=== PATIENT | female | born 1970 | race Caucasian/White ===

== ENCOUNTER 2020-03-15 07:39 | Inpatient (IN) | payer BC ==
[2020-03-30 10:06] VITALS: BMI 41.0
--- OUTSIDE RECORDS SUMMARY | 2020-04-05 09:00 | XMS ---
:1970 Author Organization [facility] Care Team Providers Name Role Phone BAILEY ESCOBEDO MD Unavailable Unavailable BAILEY ESCOBEDO MD Unavailable Unavailable BAILEY ESCOBEDO MD Unavailable Unavailable BAILEY ESCOBEDO MD Unavailable Unavailable BAILEY ESCOBEDO MD Unavailable Unavailable BAILEY ESCOBEDO MD Unavailable Unavailable BAILEY ESCOBEDO MD Unavailable Unavailable BAILEY ESCOBEDO MD Unavailable Unavailable BAILEY ESCOBEDO MD Unavailable Unavailable BAILEY ESCOBEDO MD Unavailable Unavailable BAILEY ESCOBEDO MD Unavailable Unavailable BAILEY ESCOBEDO MD Unavailable Unavailable BAILEY ESCOBEDO MD Unavailable Unavailable BAILEY ESCOBEDO MD Unavailable Unavailable BAILEY ESCOBEDO MD Unavailable Unavailable BAILEY ESCOBEDO MD Unavailable Unavailable BAILEY ESCOBEDO MD Unavailable Unavailable BAILEY ESCOBEDO MD Unavailable Unavailable BAILEY ESCOBEDO MD Unavailable Unavailable BAILEY ESCOBEDO MD Unavailable Unavailable BAILEY ESCOBEDO MD Unavailable Unavailable BAILEY ESCOBEDO MD Unavailable Unavailable BAILEY ESCOBEDO MD Unavailable Unavailable NAMITA KNOWLES, MIKE Haider MD Unavailable Unavailable Mangiafico Unavailable Unavailable Artuso Unavailable Unavailable Tamiko, M Unavailable Unavailable Brodoff Unavailable Unavailable Baccay Unavailable Unavailable Tra, F Unavailable Unavailable Karla J Unavailable Unavailable Karla J Unavailable Unavailable Karla J Unavailable Unavailable Karla J Unavailable Unavailable Karla J Unavailable Unavailable Karla J Unavailable Unavailable Karla J Unavailable Unavailable Karla J Unavailable Unavailable Karla J Unavailable Unavailable Karla J Unavailable Unavailable Karla J Unavailable Unavailable Karla J Unavailable Unavailable Karla J Unavailable Unavailable Karla J Unavailable Unavailable Karla J Unavailable Unavailable Karla J Unavailable Unavailable Karla, J MD Unavailable Unavailable Selam Acosta MD Unavailable Unavailable Selam Acosta MD Unavailable Unavailable Selam Acosta MD Unavailable Unavailable Selam Acosta MD Unavailable Unavailable Brown, D Unavailable Unavailable Re-disclosure Warning The records that you are about to access may contain information from federally- assisted alcohol or drug abuse programs. If such information is present, then the following federally mandated warning applies: This information has been disclosed to you from records protected by federal confidentiality rules (42 CFR part 2). The federal rules prohibit you from making any further disclosure of this information unless further disclosure is expressly permitted by the written consent of the person to whom it pertains or as otherwise permitted by 42 CFR part 2. A general authorization for the release of medical or other information is NOT sufficient for this purpose. The Federal rules restrict any use of the information to criminally investigate or prosecute any alcohol or drug abuse patient.The records that you are about to access may contain highly sensitive health information, the redisclosure of which is protected by Article 27-F of the [facility] Public Health law. If you continue you may haveaccess to information: Regarding HIV / AIDS; Provided by facilities licensed or operated by the [facility] Office of Mental Health; or Provided by the [facility] Office for People With Developmental Disabilities. If such information is present, then the following [facility] mandated warning applies: This information has been disclosed to you from confidential records which are protected by state law. State law prohibits you from making any further disclosure of this information without the specific written consent of the person to whom it pertains, or as otherwise permitted by law. Any unauthorized further disclosure in violation of state law may result in a fine or snf sentence or both. A general authorization for the release of medical or other information is NOT sufficient authorization for further disclosure. Allergies and Adverse Reactions Type Description Substance Reaction Status Data Source(s ) 3 NO KNOWN ALLERGIES Clindamycin 150 MG Oral NEXTGEN ([facility] Tablet [Clintabs] [facility]) Encounters Encounter Providers Location Date Indications Data Source(s ) Outpatient Attender: Johanny 04/02/2020 NEXTGEN ( [facility] 10:42:00 AM [facility]) Outpatient Attender: Johanny 04/02/2020 NEXTGEN ( [facility] 10:29:00 AM [facility] ) Outpatient Attender: Arbie 04/01/2020 NEXTGEN ( [facility] 01:54:00 PM [facility] ) Outpatient Attender: 04/01/2020 NEXTGEN ( [facility] 01:13:00 PM [facility] ) Outpatient Attender: Arb03/30/2020 NEXTGEN ( [facility] BaccayReferrer: 02:30:00 PM [facility] - [facility] ) Outpatient Attender: Marti 03/29/2020 NEXTGEN ( [facility] SaidiReferrer: Marti 03:30:00 PM Med ical - [facility] ) Outpatient Attender: 03/22/2020 NEXTGEN ( [facility] BaccayReferrer: 04:15:00 PM [facility] - [facility] Arbie [facility] ) Outpatient Attender: 03/21/2020 NEXTGEN ( [facility] 12:00:00 AM [facility] ) Outpatient Attender: 03/13/2020 NEXTGEN ( [facility] 12:00:00 AM [facility] ) Outpatient Attender: Marti 03/12/2020 NEXTGEN ( [facility] SaidiReferrer: Arbie 10:15:00 AM Med ical - [facility] ) Outpatient Attender: 03/11/2020 NEXTGEN ( [facility] 12:00:00 AM [facility] ) Outpatient Attender: 03/09/2020 NEXTGEN ( [facility] 10:57:00 AM [facility] ) Outpatient Attender: 03/08/2020 NEXTGEN ( [facility] BaccayReferrer: 02:00:00 PM [facility] - [facility] [place] Arbie [facility] ) Outpatient Attender: 03/05/2020 NEXTGEN ( [facility] BaccayReferrer: 04:00:00 PM Medical - [facility] Mike Arceus [facility]) Outpatient Attender: Tito 03/03/2020 NEXTGEN ([facility] Mangia[facility]ico 12:18:00 PM [facility]) Outpatient Attender: Johanny 02/23/2020 NEXTGEN ( [facility] 03:41:00 PM [facility] - [facility]) Outpatient Attender: Johanny 01/08/2020 NEXTGEN ( [facility] 03:34:00 PM [facility]) Outpatient Attender: Johanny 01/05/2020 NEXTGEN ( [facility] 11:40:00 AM [facility]) Outpatient Attender: Johanny 12/26/2019 NEXTGEN ( [facility] BaccayReferrer: 11:15:00 AM Medical - [facility] Arbie Baccay EDT Medical Grou p PC) Outpatient Attender: MIKE 12/12/2019 Z71.3 [facility] ARTUSO MDReferrer: 12:15:00 PM Hospi henrique of [facility] MIKE BREAUX MD EDT - 12/12/2019 12:45:00 PM EDT Z71.3 Patient discharged. Outpatient Attender: Johanny 11/18/2019 05:06:00 NEXTGEN ([facility] PM EDT [facility]) Outpatient Attender: Johanny 08/19/2019 01:00:00 NEXTGEN ([facility] PM EST [facility] - [facility]) Outpatient Attender: Luis eFrnando 06/26/2019 09:17:00 NEXTGEN ([facility] Elvis AM EST [facility] - [facility]) Outpatient Attender: Parth 06/02/2019 12:00:00 NEXTGEN ([facility] Nanff AM EST [facility] - [facility]) P Attender: MIKE 05/28/2019 03:30:00 OBESITY, COU [facility] ARTUSO MDReferrer: PM EST NSEL Hospit al of [facility] MIKE BREAUX MD 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,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 Outpatient Attender: Benson 05/21/2019 ROJASGEN Karla MDReferrer: 12:00:00 AM EST (Flory Acosta MD [facility]) Outpatient Attender: Johanny 05/07/2019 NEXTGEN Baccay 11:35:00 AM EST ([facility]) Outpatient Attender: Johanny 05/02/2019 NEXTGEN Baccay 09:58:00 AM EST ([facility]) Outpatient Attender: [facility] 04/25/2019 MEDENT (Deloris ESCOBEDO MD Internal 03:00:00 PM EDT [facility]) Outpatient Attender: MIKE 04/21/2019 OBESITY [facility] esperanza BREAUX MDReferrer: 03:30:00 PM EDT - [facility] MIKE BREAUX MD 04/21/2019 Hospit al of [facility] 04:40:00 PM EDT OBESITY Patient discharged. Outpatient Attender: Johanny Hannon 04/19/2019 12:00:00 AM NEXTGEN ([facility] EDT Medical - [facility] Medical [facility]) Outpatient Attender: Luis Fernando 04/17/2019 03:30:00 PM NEXTGEN ([facility] BrownReferrer: Arbjorge EDT Medi latanya [facility]) Outpatient Attender: Johanny Hannon 04/17/2019 12:00:00 AM NEXTGEN ([facility] EDT Medical - [facility] Medical [facility]) Outpatient Attender: Johanny 04/07/2019 10:00:00 AM NEXTGEN ([facility] BaccayReferrer: Johanny EDT Med ical [facility]) Outpatient Attender: Valeria 02/21/2019 08:10:00 AM NEXTGEN ([facility] KayeReferrer: Valeria EDT Medic al - [facility]) Medications Medication Brand Start Product Dose Route Administrative Pharmacy St atus Indications Reaction Description Data Name Date Form Instructions Instructions Source(s) Levothyroxi TIROSI take 1 capsule RP NEXTGEN ne Sodium NT 2019 by oral route ( [facility] 0.2 MG Oral 12:00: every day M edical - Capsule 00 AM [facility] [place] [Tirosint] EDT Medical 200 mcg 200 Group PC ) mcg This may be an active medication. No end date is available. Levothyroxine SYNTHROID 11/18/2019 TAKE 1 RP NEXTGEN Sodium 0.175 MG 12:00:00 AM EDT TABLET BY ([facility] Oral Tablet MOUTH EVERY M edical - Mt [Synthroid] 175 DAY [facility] mcg 175 mcg Group PC ) This may be an active medication. No end date is available. Insurance Providers Payer name Policy type / Policy ID Covered Covered Policy Plan Coverage type democrat ID democrat's Evans Inform ation relationship to evans [facility] [id number] S [id number] [facility] [id number] [employer] [facility]aur[facility] [id number] SO [id number] [employer] [id number] SO [id number] COMMERCIAL [facility] [id number] SP [id number] [facility] Group [id number] 3 [id number] [employer] [facility] [employer] [id number] SO [id number] [facility] [employer] [id number] Self [id number] ([facility]) Maintenance Organization (HMO) [employer] [id number] COMMERCIAL Problems, Conditions, and Diagnoses Code Display Name Description Problem Type Effective Data Dates Source(s) 452049305 Full respiratory Full respiratory Problem 04/25/2019 [place] DENT system examination system examination 12:00:00 AM ([facility]) [id number] Morbid obesity Morbid obesity Problem 04/25/2019 MEDENT 12:00:00 AM ([facility]) [id number] Obstructive sleep Obstructive sleep Problem 04/25/2019 MEDENT apnea syndrome apnea syndrome 12:00:00 AM ([facility]) E03.9 Hypothyroidism, Hypothyroidism, Diagnosis 03/30/2020 NEXT GEN unspecified unspecified type 02:30:00 PM (Carem [facility]unt [facility] - [facility]) Z68.41 Body mass index Body mass index Diagnosis 03/30/2020 NEXT GEN (BMI) 40.0-44.9, [BMI]40.0-44.9, 02:30:00 PM ([facility] adult adult T [facility]) E66.01 Morbid (severe) Morbid obesity Diagnosis 03/30/2020 NEXTG EN obesity due to with BMI of 02:30:00 PM ([facility] excess calories 40.0-44.9, adult EDT Med [facility] PC) R74.8 Abnormal levels of Abnormal AST and Diagnosis 03/30/2020 NEXTGEN other serum ALT 02:30:00 PM ([facility] enzymes [facility]) K76.0 Fatty (change of) Fatty liver Diagnosis 03/29/2020 NEXTGE N liver, not 03:30:00 PM ([facility] elsewhere T [facility] classified [facility]) Z01.84 Encounter for Lack of immunity Diagnosis 03/22/2020 NEXTG EN antibody response to hepatitis B 04:15:00 PM ([facility] examination virus demonstrated EDT Medic [facility] by serologic test [facility] Group PC) R74.0 Nonspecific Abnormal Diagnosis 03/12/2020 NEXTGEN elevation of transaminases 10:15:00 AM ([facility] levels of [facility] transaminase and [facility] dical lactic acid Group ) dehydrogenase [LDH] R79.1 Abnormal Prothrombin time Diagnosis 03/09/2020 NEXTGEN coagulation increased 10:57:00 AM ([facility] profile [facility]) R82.90 Unspecified Abnormal Diagnosis 03/08/2020 NEXTGEN abnormal findings urinalysis 02:00:00 PM (Carem ount in urine [facility] PC) Z01.818 Encounter for Pre-operative Diagnosis 03/05/2020 NEXTGEN other examination 04:00:00 PM ([facility] preprocedural EDT Medical [facility] t examination [facility]) Z71.3 Dietary counseling DIETARY COUNSELING Diagnosis 0 [place] and surveillance AND SURVEILLANCE 06:34:00 AM [facility] E66.01 Morbid (severe) MORBID (SEVERE) Diagnosis 12/12/2019 [facility] obesity due to OBESITY DUE TO 06:34:00 AM Regio nal excess calories EXCESS CALORIES EDT Hosp ital [facility] E03.9 Hypothyroidism, HYPOTHYROIDISM, Diagnosis 04/21/2019 [facility] unspecified UNSPECIFIED 03:34:00 [facility] Z68.39 Body mass index BODY MASS INDEX Diagnosis 04/21/2019 [facility] (BMI) 39.0-39.9, (BMI) 39.0-39.9, 03:34:00 PM [facility] adult [facility] EDT [facility] M79.661 Pain in right Pain of right knee Diagnosis 04/17/2019 NEX TGEN lower leg and lower leg 03:30:00 PM ([facility]) R13.10 Dysphagia, Dysphagia, Diagnosis 04/07/2019 NEXTGEN unspecified unspecified type 10:00:00 AM ([facility] ount [facility]) G89.29 Other chronic pain Other chronic pain Diagnosis 9 NEXTGEN 10:00:00 AM ([facility] Group PC) M25.561 Pain in right knee Chronic pain of Diagnosis 04/07/2019 N EXTGEN right knee 10:00:00 AM ([facility]) R06.83 Snoring Snoring Diagnosis 04/07/2019 NEXTGEN 10:00:00 AM ([facility]) Z68.38 Body mass index Body mass index Diagnosis 04/07/2019 NEXT GEN (BMI) 38.0-38.9, (bmi) 38.0-38.9, 10:00:00 AM ( [facility] adult adult T [facility] PC) Z00.00 Encounter for Annual physical Diagnosis 04/07/2019 NEXTGE N general adult exam 10:00:00 AM ([facility] examination [facility] without abnormal Group PC ) findings Surgeries/Procedures Procedure Description Date Indications Data Source(s) OFFICE/OUTPATIENT OFFICE/OUTPATIENT 03/30/2020 NEXTG EN ([facility] VISIT EST VISIT EST 12:00:00 AM [facility] sco EDT Medical Group P C) HEP A/HEP B VACC HEP A/HEP B VACC 03/22/2020 NEXTGEN ([facility] ADULT IM ADULT IM 12:00:00 [facility] IMMUNIZATION ADMIN IMMUNIZATION ADMIN 03/22/2020 NEX TGEN ([facility] 12:00:00 [facility]) OFFICE CONSULTATION OFFICE CONSULTATION 03/12/2020 N EXTGEN ([facility] 12:00:00 AM Medical - [facility] sco EDT [facility] Group P C) MISSED APPOINTMENT MISSED APPOINTMENT 05/21/2019 NEX TGEN ([facility] 12:00:00 AM [facility] EST [facility]) SPMTRY W/VC 04/25/2019 MEDENT ([facility] +-MXML 12:00:00 AM Medica l Group of [facility] EDT the [facility]) OFFICE CONSULTATION OFFICE CONSULTATION 04/17/2019 N EXTGEN ([facility] 12:00:00 AM [facility]) OFFICE/OUTPATIENT OFFICE/OUTPATIENT 04/07/2019 NEXTG EN ([facility] VISIT EST VISIT EST 12:00:00 AM [facility]) PREV VISIT EST AGE PREV VISIT EST AGE 1004/07/2019 NEX TGEN ([facility] 40-64 40-64 12:00:00 AM [facility]) Results ID Date Data Source [id number] 04/01/2020 08:16:00 AM EDT [facility] Name Value Range Interpretation Description Data Sup porting Code Source(s) Document(s ) SARS [facility] coronavirus 2 RNA This lab was ordered by NATACHA amezquita [facility] and reported by [facility]. ID Date Data Source [id number] 10/08/2019 12:00:00 AM EDT [facility] Name Value Range Interpretation Code Description Data Haleigh rce(s) Supporting Document(s ) 2019-nCoV [facility] RNA XXX CAIN+probe- Imp This lab was ordered by [facility] DAIGLE and reported by [employer] Procedure Vital Signs ID Date Data Source UNK Name Value Range Interpretation Code Description Data Source(s) Body mass index 40.1 kg/m2 40.1 kg/m2 MEDENT (P remier (BMI) [Ratio] Medical Te up of the [facility]) Oxygen saturation 98 % 98 % MEDENT ([facility] in Arterial blood Medical Group of by Pulse oximetry [facility]) at rest. room air Heart rate 69 /min 69 /min MEDENT ([facility]) Respiratory rate 12 /min 12 /min MEDENT ( [facility]) Diastolic blood pressure 76 mm[Hg] 76 mm[Hg] [facility]ENT [facility]) right arm, sitting Systolic blood pressure 120 mm[Hg] 120 mm[Hg] M EDENT ([facility]) right arm, sitting Body height 61 [in_i] 61 [in_i] MEDENT ([facility]) 5'1" Body weight 212.00 [lb_av] 212.00 [lb_av] MEDEN T ([facility]) fully clothed, with shoes
[2020-04-05] MEDS ORDERED: BUPIVACAINE HCL/PF 0.25% (2.5MG/ML) 10 ML VIAL ONE (09:22)
[2020-04-05] MEDS ORDERED: BUPIVACAINE HCL/PF 0.5% (5 MG/ML) 30 ML VIAL IJ ONE (10:08)
[2020-04-05] MEDS ORDERED: DEXAMETHASONE SOD PHOSPHATE 4 MG/1 ML VIAL ONE ×2 (10:08→10:10)
[2020-04-05] MEDS ORDERED: MIDAZOLAM HCL 2 MG/2 ML SINGLE DOSE VIAL ONE (10:08)
[2020-04-05] MEDS ORDERED: PROPOFOL 20 ML ONE (10:10)
[2020-04-05] MEDS ORDERED: ONDANSETRON 4 MG/2 ML VIAL ONE ×2 (10:10→11:52)
[2020-04-05] MEDS ORDERED: KETOROLAC TROMETHAMINE 30 MG/1 ML VIAL ONE (10:10)
[2020-04-05] MEDS ORDERED: ROCURONIUM BROMIDE 50 MG/5 ML SYRINGE ONE (10:11)
[2020-04-05] MEDS ORDERED: ePHEDrine SULFATE 50 MG/1 ML AMPULE ONE (10:12)
[2020-04-05] MEDS ORDERED: ceFAZolin SODIUM 1 GM VIAL ONE ×2 (11:00→11:01)
[2020-04-05] MEDS ORDERED: ONDANSETRON 4 MG/2 ML VIAL IVPUSH PRN (11:08)
[2020-04-05] MEDS ORDERED: HYDROmorphone HCL CARPU-JECT 1 MG/1 ML DISP.SYRIN IVPUSH PRN (11:08)
[2020-04-05] MEDS ORDERED: LACTATED RINGERS SOLUTION 1,000 ML IV SCH (11:15)
[2020-04-05] MEDS ORDERED: NEOSTIGMINE METHYLSULFATE 0.5 MG/ML - 10 ML MDV ONE (11:53)
[2020-04-05] MEDS ORDERED: FAMOTIDINE 20 MG/50 ML IVPB 20 MG/50 ML MG IVPB ONE (12:40)
[2020-04-05] MEDS ORDERED: HYDROmorphone HCL/PF 1 MG/ML VIAL ONE (12:46)
[2020-04-05] MEDS ORDERED: BUPIVACAINE HCL/PF 0.25% (2.5MG/ML) 10 ML VIAL IJ ONE (12:50)
[2020-04-05] MEDS ORDERED: METOCLOPRAMIDE HCL INJECTION 10 MG/2 ML VIAL ONE (13:11)
[2020-04-05] MEDS ORDERED: HYDROmorphone HCL 0.5 MG/0.5 ML SYRINGE IVPB PRN (13:14)
[2020-04-05] MEDS: METOCLOPRAMIDE HCL INJECTION 10 MG/2 ML VIAL IVPUSH SCH ×2 (13:15→20:04)
[2020-04-05] MEDS ORDERED: FAMOTIDINE 20 MG PREMIXED IVPB IVPB ONE (13:21)
--- NOTE | 2020-04-05 13:23 | OP ---
Operative Note - Note: Operative Date: 04/05/20 Pre-Operative Diagnosis: Morbid Obesity. Sleep Apnea. Elevated LFT Operation: Laparoscopic Vertical Sleeve Gastrectomy. Wedge Biopsy of left lobe of liver. Oversewing of gastric staple line. Repair of hiatal hernia. D iagnostic Laparoscopy Findings: Greater curve sleeve gastrectomy performed with #[address] Gastric staple line oversewn for hemostsis Wedge biopsy performed on enlarged left lobe of liver Anterior hiatal hernia repaired with simple sutures Post-Operative Diagnosis: Same as Pre-op (Hepatomegaly; Hiatal hernia) Surgeon: Mike Ziegler [employer] Ventilator: Ronnie Condon Anesthesia: General Specimens Removed: Greater curve of stomach. Wedge biopsy of left lobe of liver Estimated Blood Loss (mls): 100 Operative Report Dictated: Yes
[2020-04-05 14:00] LABS: HEMATOCRIT 40.8 % (32.4-45.2); HEMOGLOBIN 13.6 GM/dl (10.7-15.3); MCHC 33.2 g/dl (32.0-36.0); MEAN CELL VOLUME 93.2 fl (80-96); MEAN PLT VOLUME 9.4 fl (7.5-11.1); PLATELET COUNT 308 K/MM3 (134-434); RBC 4.38 M/mm3 (3.60-5.2); RDW 12.9 % (11.6-15.6); WHITE BLOOD COUNT 10.1 K/mm3 (4.0-10.8)
[2020-04-05 14:05] LABS: ACTIVATED PTT 26.5 SECONDS (25.2-36.5)
[2020-04-05 14:06] LABS: ALBUMIN 3.6 g/dl (3.4-5.0); BILIRUBIN,TOTAL 0.7 mg/dl (0.2-1); CALCIUM 8.3 mg/dl (8.5-10); CREATININE 0.6 mg/dl (0.55-1.3); POTASSIUM 4.1 mmol/L (3.5-5.1); TOT PROT 7.1 g/dl (6.4-8.2)
[2020-04-05] MEDS: SODIUM CHLORIDE 1,000 ML IV SCH (14:07)
[2020-04-05 14:09] LABS: INR 1.29 (0.82-1.09); PROTHROMBIN TIME (PATIENT) 14.4 SEC (10.2-13.0)
--- NOTE | 2020-04-05 14:26 | OP ---
DATE OF OPERATION: 04/05/2020 PREOPERATIVE DIAGNOSES: 1. Morbid obesity. 2. Sleep apnea. 3. Elevated liver function tests. POSTOPERATIVE DIAGNOSES: 1. Morbid obesity. 2. Sleep apnea. 3. Elevated liver function tests. 4. Hepatomegaly 5. Hiatal hernia. PROCEDURE PERFORMED: 1. Laparoscopic vertical sleeve gastrectomy. 2. Wedge biopsy of the left lobe of the liver. 3. Oversewing of gastric staple line. 4. Repair of a hiatal hernia. 5. Diagnostic laparoscopy. OPERATING SURGEON: Madyson Breaux MD ELECTRICIAN APPRENTICE: MAYRA Sanz ANESTHESIA: General. ESTIMATED BLOOD LOSS: 100 mL DISPOSITION: Patient transferred to recovery room in stable condition. OPERATIVE PROCEDURE: The patient was brought into the operating room, placed on the OR table in the supine position. All precautions were taken initially including padding for the back and the feet and Venodyne boots were placed on both lower extremities. At that point the abdomen was prepped and draped in the usual manner. A Veress needle was placed in the left upper quadrant and a pneumoperitoneum was established. Under direct vision with a laparoscopic camera a No. 5 bladeless trocar was placed in the left upper quadrant and through that trocar a laparoscopic camera was placed. Under direct vision a No. 15 bladeless trocar was placed in the midline in the supraumbilical position followed by a No. 5 bladeless trocar in the right upper quadrant and a No. 5 bladeless trocar below the left costal margin. A Solitario liver retractor was then placed in the epigastrium to retract the left lobe of the liver. The patient was then placed in a 20-degree reverse Trendelenburg position by Anesthesia. Immediately upon exploring the upper abdomen with the entire stomach there was noted to be a moderate to large size anterior hiatal hernia. The stomach was pulled down into the abdominal cavity and the repair of the anterior hiatal hernia was performed with simple sutures between the right and left crural muscles. With the right and left crural muscles exposed and visible, it took 3 simple sutures to bring the right and left crural muscles together and to keep the esophagogastric junction in the abdominal cavity. At this point attention was directed to the pylorus on the distal stomach. Six cm were measured proximally from that point and here the operating surgeon lifted the stomach toward the anterior abdominal wall and the assistant in nursing surgeon retracted the gastrocolic ligament inferiorly. The LigaSure device was used to dissect the gastrocolic ligament and then the short gastric vessels along the greater curve and this continued in a superior and vertical direction. This dissection continued vertically and superiorly until the final short gastric vessel between the proximal fundus and the superior pole of the spleen was divided. At this juncture Anesthesia advanced a No. 36 bougie. This was advanced into the antrum and along the distal stomach. With the bougie held along the lesser curvature a series of trudy was performed, the first 2 being black load trudy 6 cm in length along the bougie. This was followed by a series of purple trudy also 6 cm in length and also along the bougie until the final staple was applied on the left upper quadrant and the greater curve was now completely detached from the lesser curve. It should be noted that prior to firing each staple both the anterior and posterior solo were checked that they were equal and in the area of the esophagogastric junction approximately 1 to 1.5 cm of serosa remained on the anterior and posterior surfaces. At this juncture there was noted to be some slight oozing throughout the staple line and the Endo Stitch was used to run the staple line and provide hemostasis from the very proximal all the way to the distal portion on the antrum. At this juncture saline was placed around the staple line. Anesthesia inserted air into the bougie which showed the entire stomach distended. No obstruction and no leaks were noted. At this point attention was directed to the left lobe of the liver which looked enlarged and the patient was noted to have elevated LFTs. The LigaSure device was used to take a wedge, triangle-shaped wedge of liver off the edge of the left lobe of the liver going through first the capsule and then the parenchyma. The specimen was sent off the field as a specimen to Pathology and the parenchymal bleeding was then easily controlled with electrocautery. At this juncture the resected greater curvature was removed through the No. 15 trocar site and then the 15 trocar site was closed with Endo closure device to prevent internal hernia and to prevent bleeding. Under direct vision all trocars were removed and the pneumoperitoneum was released. All trocar sites received 0.25% Marcaine. The No. 15 trocar site was closed with 3-0 Vicryl in the subcutaneous tissue and all trocar sites were closed with 4-0 Biosyn in a subcuticular fashion. Dressings were applied. The patient awoke from anesthesia and transferred out of the operating room to the recovery room in stable condition. MADYSON BREAUX M.D. [id number]
[2020-04-05] MEDS: ONDANSETRON 4 MG/2 ML VIAL IVPUSH PRN (16:48)
[2020-04-05] MEDS: HYDROmorphone HCL/PF 1 MG/ML VIAL IVPB PRN (20:04)
[2020-04-05] MEDS: FAMOTIDINE 20 MG/50 ML IVPB 20 MG/50 ML MG IVPB SCH (21:27)
[2020-04-06] MEDS: HYDROmorphone HCL/PF 1 MG/ML VIAL IVPB PRN ×5 (00:01→23:05)
[2020-04-06] MEDS: METOCLOPRAMIDE HCL INJECTION 10 MG/2 ML VIAL IVPUSH SCH ×4 (00:20→21:08)
[2020-04-06] MEDS: ONDANSETRON 4 MG/2 ML VIAL IVPUSH PRN (02:44)
[2020-04-06 08:09] LABS: HEMATOCRIT 31.3 % (32.4-45.2); HEMOGLOBIN 10.5 GM/dl (10.7-15.3); MCHC 33.6 g/dl (32.0-36.0); MEAN CELL VOLUME 92.3 fl (80-96); MEAN PLT VOLUME 9.5 fl (7.5-11.1); PLATELET COUNT 329 K/MM3 (134-434); RBC 3.39 M/mm3 (3.60-5.2); RDW 12.5 % (11.6-15.6); WHITE BLOOD COUNT 13.7 K/mm3 (4.0-10.8)
[2020-04-06 08:46] LABS: BILIRUBIN,TOTAL 0.6 mg/dl (0.2-1); CALCIUM 7.6 mg/dl (8.5-10); CREATININE 0.6 mg/dl (0.55-1.3); POTASSIUM 3.9 mmol/L (3.5-5.1); TOT PROT 6.1 g/dl (6.4-8.2)
[2020-04-06] MEDS: FAMOTIDINE 20 MG/50 ML IVPB 20 MG/50 ML MG IVPB SCH ×2 (09:27→21:09)
--- NOTE | 2020-04-06 10:09 | EKG ---
Test Reason : Blood Pressure : / mmHG Vent. Rate : 067 BPM Atrial Rate : 067 BPM P-R Int : 162 ms QRS Dur : 090 ms QT Int : 410 ms P-R-T Axes : 043 024 -16 degrees QTc Int : 433 ms NORMAL SINUS RHYTHM NONSPECIFIC T WAVE ABNORMALITY ABNORMAL ECG WHEN COMPARED WITH ECG OF 05-APR-2020 18:28, NO SIGNIFICANT CHANGE WAS FOUND Confirmed by MD Damien, Parth ([id number]) on 04/06/2020 10:08:56 AM Referred By: Mike Ziegler Confirmed By:Parth Quezada MD
[2020-04-06] MEDS ORDERED: SUCCINYLCHOLINE CHLORIDE 200 MG/10 ML SYRINGE ONE (11:01)
[2020-04-06] MEDS ORDERED: PROPOFOL 20 ML ONE (11:01)
[2020-04-06] MEDS ORDERED: MIDAZOLAM HCL 2 MG/2 ML SINGLE DOSE VIAL ONE (11:02)
[2020-04-06] MEDS: SODIUM CHLORIDE 1,000 ML IV SCH (14:06)
--- NOTE | 2020-04-06 15:36 | CON.CARD ---
Consult Consult Specialty:: cardiology Referred by:: surgery Reason for Consultation:: abnormal EKG, ?Vtach - History of Present Illness Chief Complaint: postop gastric sleeve, abd pain History of Present Illness: 49F history of obesity, hypothyroidism, obesity s/p sleeve gastrectomy yesterday with ?vtach on tele monitoring. no complications during surgery, denies chest pain, palps, dizziness, dyspnea. on tele monitoring last night was concerning for VTach. at the time she had abdominal pain post op, otherwise no complaints. - Past Medical History ...LMP: 02/12/20 ...: No Endocrine: Yes: Hypothyroidism - Smoking History Smoking history: Never smoked Home Medications - Allergies Allergies/Adverse Reactions: Allergies Allergy/AdvReac Type Severity Reaction Status Date / Time No Known Allergies Allergy Verified 03/30/20 10:00 - Home Medications Home Medications: Ambulatory Orders Levothyroxine [Synthroid -] 200 mcg PO DAILY 03/30/20 Famotidine [Pepcid -] 20 mg PO BID #60 tablet 04/05/20 Oxycodone HCl/Acetaminophen [Percocet 5-325 mg Tablet] 1 tab PO Q6H PRN #20 tablet MDD 4 04/05/20 Family Medical History Family History: Unremarkable Review of Systems - Review of Systems Constitutional: reports: No Symptoms Eyes: reports: No Symptoms HENT: reports: No Symptoms Neck: reports: No Symptoms Cardiovascular: reports: No Symptoms Respiratory: reports: No Symptoms Gastrointestinal: reports: No Symptoms Genitourinary: reports: No Symptoms Musculoskeletal: reports: No Symptoms Integumentary: reports: No Symptoms Neurological: reports: No Symptoms Endocrine: reports: No Symptoms Hematology/Lymphatic: reports: No Symptoms Psychiatric: reports: No Symptoms Vital Signs: Vital Signs Temperature 98.4 F 04/06/20 14:00 Pulse Rate 78 04/06/20 14:00 Respiratory Rate 18 04/06/20 14:00 Blood Pressure 136/70 04/06/20 14:00 O2 Sat by Pulse Oximetry (%) 96 04/06/20 14:00 Constitutional: Yes: No Distress, Calm Eyes: Yes: Conjunctiva Clear, EOM Intact HENT: Yes: Atraumatic, Normocephalic Neck: Yes: Supple, Trachea Midline Respiratory: Yes: Regular, CTA Bilaterally Gastrointestinal: Yes: Soft, Tenderness Cardiovascular: Yes: Regular Rate and Rhythm JVD: No Heart Sounds: Yes: S1, S2 Musculoskeletal: No: Back Pain Extremities: No: Cold Edema: No Peripheral Pulses WNL: Yes Integumentary: No: Jaundice Neurological: Yes: Alert, Oriented Psychiatric: No: Agitated - Other Data Labs, Other Data: CBC, BMP 04/06/20 06:58 04/06/20 06:58 INR, PTT INR 1.29 (0.82-1.09) H 04/05/20 13:30 Troponin, BNP 04/05/20 04/06/20 19:30 03:00 Troponin I 0.03 < 0.02 Troponin, BNP 04/05/20 04/06/20 19:30 03:00 Troponin I 0.03 < 0.02 Assessment/Plan EKG: sinus, nl intervals, no ischemic changes echo 2018 nl LV/RV function, mild MR, mild TR tele: sinus, artifact 49F history of obesity, hypothyroidism, sleep apnea s/p sleeve gastrectomy surgery yesterday with ?vtach on tele monitoring abnormal EKG, ?Vtach - reviewed telemetry strips - likely sinus rhythm with significant artifact - EKG stable compared to prior - echo pending, if benign findings no further cardiac workup obesity, s/p sleeve gastrectomy - manage per surgery sleep apnea - follow up as outpatient hypothyroidism - cont levothyroxine
[2020-04-06 15:42] LABS: HEMATOCRIT 28.7 % (32.4-45.2); MCH 32.1 pg (25.7-33.7); MCHC 34.9 g/dl (32.0-36.0); MEAN CELL VOLUME 92.1 fl (80-96); MEAN PLT VOLUME 8.8 fl (7.5-11.1); PLATELET COUNT 292 K/MM3 (134-434); RBC 3.11 M/mm3 (3.60-5.2); RDW 12.8 % (11.6-15.6); WHITE BLOOD COUNT 11.7 K/mm3 (4.0-10.8)
[2020-04-06 16:01] LABS: ACTIVATED PTT 20.5 SECONDS (25.2-36.5)
[2020-04-06 16:03] LABS: ALBUMIN 3.1 g/dl (3.4-5.0); BILIRUBIN,TOTAL 0.7 mg/dl (0.2-1); CALCIUM 7.7 mg/dl (8.5-10); CREATININE 0.5 mg/dl (0.55-1.3)
[2020-04-06 16:05] LABS: INR 1.4 (0.82-1.09); PROTHROMBIN TIME (PATIENT) 15.6 SEC (10.2-13.0)
--- NOTE | 2020-04-06 16:18 | ECHO ---
Version: 1 Name: KHALIF WANG Exam: Adult Echocardiogram Study Date: 04/06/2020, 2:28 PM Age: 49 Years MMode/2D Measurements & Calculations IVSd: 1.00 cm LVIDs: 2.36 cm LVIDd: 4.3 cm LVPWd: 0.94 cm LVOT diam: 2.00 cm Ao root diam: 2.8 cm LA dimension: 2.7 cm Doppler Measurements & Calculations MV E max don: 121.2 cm/sec MV A max don: 82.3 cm/sec MV E/A: 1.47 Ao max P.9 mmHg Ao V2 max: 172.2 cm/sec PI end-d don: 93.4 cm/sec TR max don: 208.8 cm/sec TR max P.4 mmHg Left Ventricle The left ventricular size, thickness and function are normal. EF 70%. Right Ventricle The right ventricle is normal in size and function. Atria Normal left and right atrial size and function. Mitral Valve The mitral valve is normal in structure and function. Tricuspid Valve The tricuspid valve is normal in structure and function. Mild TR, PASP 22 mmHg. Aortic Valve The aortic valve is normal in structure and function. Pulmonic Valve The pulmonic valve is normal in structure and function. Great Vessels The aortic root is normal size. Pericardium/Pleura There is no pericardial effusion. Summary Statements The left ventricular size, thickness and function are normal EF 70% The right ventricle is normal in size and function. Normal left and right atrial size and function. The mitral valve is normal in structure and function. The tricuspid valve is normal in structure and function. The aortic valve is normal in structure and function. The pulmonic valve is normal in structure and function. The aortic root is normal size. MD Parth Quezada 04/06/2020, 4:17 PM Ordering Physician: Amber Mcclain Referring Physician: Mike Ziegler Performed By: Christie Gonzalez
--- NOTE | 2020-04-06 16:56 | PN ---
Progress Note (short form) - Note Progress Note: POD#1 Afebrile; P-78; BP-136/70 Pt doing well No N/V States had menstrual period this AM (heavy) Cardiology note appreciated Ambulates well P/E- conjunctivae- slightly pale Abd- all incisions with band-aids H/H- 10.0 (decreased from 10.5 this AM, 13.6 after surgery) BUN/CR- 8.0/ 0.5 AST-57 (decreased) ALT-81 (decreased) PT- 15.6 (increased) INR-1.40 (increased) UGI- no leak, no obstruction P- sips of water check H/H tonight and in AM Hematology to see 04/07/2020 Follow labs, V/S closely
[2020-04-06 23:03] LABS: HEMATOCRIT 27.9 % (32.4-45.2); HEMOGLOBIN 9.3 GM/dl (10.7-15.3); MCHC 33.5 g/dl (32.0-36.0); MEAN CELL VOLUME 92.4 fl (80-96); MEAN PLT VOLUME 9.1 fl (7.5-11.1); PLATELET COUNT 251 K/MM3 (134-434); RBC 3.01 M/mm3 (3.60-5.2); RDW 12.7 % (11.6-15.6); WHITE BLOOD COUNT 10.3 K/mm3 (4.0-10.8)
[2020-04-07] MEDS: METOCLOPRAMIDE HCL INJECTION 10 MG/2 ML VIAL IVPUSH SCH ×4 (02:03→21:46)
[2020-04-07] MEDS: HYDROmorphone HCL/PF 1 MG/ML VIAL IVPB PRN ×3 (06:21→17:48)
[2020-04-07 08:22] LABS: ALBUMIN 2.9 g/dl (3.4-5.0); BILIRUBIN,TOTAL 1.1 mg/dl (0.2-1); CALCIUM 7.7 mg/dl (8.5-10); CREATININE 0.4 mg/dl (0.55-1.3); POTASSIUM 3.3 mmol/L (3.5-5.1); TOT PROT 5.9 g/dl (6.4-8.2)
[2020-04-07 08:24] LABS: HEMATOCRIT 29.6 % (32.4-45.2); HEMOGLOBIN 10.1 GM/dl (10.7-15.3); MCH 31.4 pg (25.7-33.7); MCHC 34.2 g/dl (32.0-36.0); MEAN CELL VOLUME 91.7 fl (80-96); MEAN PLT VOLUME 9.2 fl (7.5-11.1); PLATELET COUNT 242 K/MM3 (134-434); RBC 3.23 M/mm3 (3.60-5.2); RDW 13.1 % (11.6-15.6); WHITE BLOOD COUNT 10.6 K/mm3 (4.0-10.8)
[2020-04-07 08:33] LABS: ACTIVATED PTT 22.8 SECONDS (25.2-36.5)
[2020-04-07 08:37] LABS: INR 1.39 (0.82-1.09); PROTHROMBIN TIME (PATIENT) 15.5 SEC (10.2-13.0)
--- NOTE | 2020-04-07 09:02 | CONSULT ---
Consult Reason for Consultation:: post-op bleeding? - History of Present Illness Chief Complaint: adm for sleeve gastrectomy History of Present Illness: 49 yof w h/o obesity, hypothyroid, abnl LFTs is POD 2 sleeve gastrectomy. No intra-op complications and ebl 100 ml. No bleeding d/o hx. Had liver bx w/o bleeding complication. Has rare menses w heavy bleeding and has menses now. Post op hb 13-10-9 and given transfusion last pm. Mild elev of inr - History Source History Provided By: Patient, Medical Record - Past Medical History ...LMP: 02/12/20 ...: No Endocrine: Yes: Hypothyroidism - Smoking History Smoking history: Never smoked Home Medications - Allergies Allergies/Adverse Reactions: Allergies Allergy/AdvReac Type Severity Reaction Status Date / Time No Known Allergies Allergy Verified 03/30/20 10:00 - Home Medications Home Medications: Ambulatory Orders Levothyroxine [Synthroid -] 200 mcg PO DAILY 03/30/20 Famotidine [Pepcid -] 20 mg PO BID #60 tablet 04/05/20 Oxycodone HCl/Acetaminophen [Percocet 5-325 mg Tablet] 1 tab PO Q6H PRN #20 tablet MDD 4 04/05/20 Family Medical History Family History: Unremarkable Review of Systems - Review of Systems Respiratory: reports: No Symptoms Physical Exam Vital Signs: Vital Signs Temperature 98.6 F 04/07/20 06:00 Pulse Rate 80 04/07/20 08:27 Respiratory Rate 18 04/07/20 06:00 Blood Pressure 129/64 04/07/20 06:00 O2 Sat by Pulse Oximetry (%) 96 04/07/20 08:27 Constitutional: Yes: No Distress, Calm Neck: Yes: WNL Cardiovascular: Yes: Regular Rate and Rhythm Respiratory: Yes: CTA Bilaterally Gastrointestinal: Yes: Soft (non-distended clean dressings over port sites, no ecchymoses) Musculoskeletal: Yes: WNL Extremities: Yes: WNL Edema: No Wound/Incision: Yes: Clean/Dry Neurological: Yes: Alert, Oriented Labs: CBC, BMP 04/07/20 07:28 04/07/20 07:28 Assessment/Plan post-op dec hct, mild elev PT in setting of npo and hepatopathy post-op course coinciding w menses and use of IVF h/h acceptable and given transfusion last pm w response Does not appear to have signif post-op bleeding would monitor cbc would avoid pro-thrombotic maneuvers
[2020-04-07] MEDS ORDERED: ACETAMINOPHEN 325 MG TABLET (FP) PO PRN (09:41)
[2020-04-07] MEDS ORDERED: SODIUM CHLORIDE 1,000 ML IV SCH (09:45)
[2020-04-07] MEDS ORDERED: LEVOTHYROXINE NA 100 MCG TABLET (FP) PO ONE (09:45)
--- NOTE | 2020-04-07 09:53 | PN ---
Progress Note (short form) - Note Progress Note: POD#2 Dr Walters (hematology) note appreciated Afebrile; P- 80-84 BP- 129/64 Pt doing well No N/V Beginning PO clear liquids- 3 oz PO TID Ambulating well + flatus this AM P/E- Eyes- conjunctivae- pink Abd- mild tenderness on palpation over midline trocar site WBC-10.6 H/H-10.1/29.6 ( increased after transfusion) K+-3.3 JANNA-1.1 AST-40 ALT-64 AP- 60 PTT/INR- no change P- Begin PO clear liquids- 3 oz PO TID Check H/H in 8 hours Replace K+ Encourage ambulation Continue SCD's
[2020-04-07] MEDS: POTASSIUM CHLORIDE TABS 20 MEQ TABLET.ER (FP) PO SCH (11:03)
[2020-04-07] MEDS: FAMOTIDINE 20 MG/50 ML IVPB 20 MG/50 ML MG IVPB SCH ×2 (11:04→21:46)
--- NOTE | 2020-04-07 14:26 | PATH ---
Surgical Pathology Report Patient Name: KHALIF WANG Med. Rec. #: [id number] /Age/Gender: 1970 (Age: 49) / F Account: [id number] Location: [facility] MED-SURG Taken: 04/05/2020 Received: 04/05/2020 Reported: 04/07/2020 Physicians: Mike Ziegler M.D. Specimen(s) Received A: GREATER CURVATURE STOMACH B: LIVER BIOPSY Clinical History Morbid obesity Final Diagnosis A. GREATER CURVATURE OF STOMACH, LAPAROSCOPIC SLEEVE GASTRECTOMY: PORTION OF STOMACH SHOWING MILD CHRONIC MUCOSAL INFLAMMATION. IMMUNOSTAIN IS NEGATIVE FOR H. PYLORI ORGANISMS. B. LIVER, BIOPSY: LIVER SHOWING MODERATE STEATOSIS (~60%) WITH HEPATOCYTE BALLOONING AND FOCI OF LOBULAR INFLAMMATION (GRADE 2). (SEE COMMENT) TRICHROME STAIN SHOWS MILD ZONE 3 PERISINUSOIDAL FIBROSIS (STAGE 1). IRON STAIN SHOWS NO INCREASE IN STAINABLE IRON DEPOSITS. Comment: The Non-Alcoholic Steatosis (JAYRO) score is 6/8 (steatosis: 2/3; lobular inflammation: 2/3; hepatocyte balloonin/2). The fibrosis stage is 1(a)/4. Scoring interpretation: Total JAYRO score represents the sum of scores for steatosis, lobular inflammation and ballooning, and ranges from 0-8. In the reference study, JAYRO scores of 0-2 occurred in cases largely considered not diagnostic of Non-Alcoholic Steatohepatitis (GUERRA), scores of 3-4 were evenly divided among those considered not diagnostic, borderline or positive for GUERRA. Scores of 5-8 occurred in cases that were largely considered diagnostic of GUERRA. Reference: Pineda Gonzalez. & Cam Kam, et al; Design and validation of a histological scoring system for non-alcoholic fatty liver disease: Hepatology 41:[id number],2005. Electronically Signed Aníbal Garcia M.D. Gross Description A. Received in formalin, labeled "greater curvature of stomach," is a 56 gram, 13.0 x 2.2 x 2.2 cm. portion of stomach with a stapled margin of resection. The serosa is cespedes-donovan with minimal attached fat. The mucosa is cespedes-pink with normal folds. No mucosal masses are identified. Fern Picker sections are submitted in one cassette. B. Received in formalin labeled "liver biopsy," is a 3.0 x 1.3 x 0.6 cm cespedes portion of soft tissue, consistent with a liver biopsy. The specimen is bisected and entirely submitted in one cassette. 04/06/2020 [facility]04/06/2020
--- NOTE | 2020-04-07 15:05 | EKG ---
Test Reason : Blood Pressure : / mmHG Vent. Rate : 070 BPM Atrial Rate : 070 BPM P-R Int : 178 ms QRS Dur : 088 ms QT Int : 436 ms P-R-T Axes : 049 031 -15 degrees QTc Int : 470 ms NORMAL SINUS RHYTHM NONSPECIFIC ST AND T WAVE ABNORMALITY ABNORMAL ECG NO PREVIOUS ECGS AVAILABLE Confirmed by MD Damien, Parth ([id number]) on 04/07/2020 3:04:57 PM Referred By: Mike Ziegler Confirmed By:Parth Quezada MD
[2020-04-07 16:09] LABS: HEMATOCRIT 30.5 % (32.4-45.2); HEMOGLOBIN 10.2 GM/dl (10.7-15.3); MCH 30.7 pg (25.7-33.7); MCHC 33.5 g/dl (32.0-36.0); MEAN CELL VOLUME 91.5 fl (80-96); MEAN PLT VOLUME 8.7 fl (7.5-11.1); PLATELET COUNT 240 K/MM3 (134-434); RBC 3.34 M/mm3 (3.60-5.2); RDW 13.7 % (11.6-15.6); WHITE BLOOD COUNT 10.6 K/mm3 (4.0-10.8)
[2020-04-07 16:21] LABS: ALBUMIN 3.1 g/dl (3.4-5.0); ALK PHOS 60 U/L (45-117); ANION GAP 7 MMOL/L (8-16); CALCIUM 7.9 mg/dl (8.5-10); CHLORIDE 106 mmol/L (98-107); CO2 23 mmol/L (21-32); CREATININE 0.5 mg/dl (0.55-1.3); GLUCOSE,RANDOM 109 mg/dl (74-106); POTASSIUM 3.5 mmol/L (3.5-5.1); SGOT/AST 33 U/L (15-37); SGPT/ALT 61 U/L (13-61); SODIUM 136 mmol/L (136-145); TOT PROT 6.1 g/dl (6.4-8.2)
[2020-04-07 16:25] LABS: BLOOD UREA NITROGEN < 5.0 mg/dl (7-18)
[2020-04-07] MEDS: oxyCODONE HCL 5 MG TABLET PO PRN (22:02)
[2020-04-08] MEDS: METOCLOPRAMIDE HCL INJECTION 10 MG/2 ML VIAL IVPUSH SCH ×2 (02:37→07:25)
[2020-04-08] MEDS: oxyCODONE HCL 5 MG TABLET PO PRN ×2 (04:04→09:15)
[2020-04-08 06:59] VITALS: PULSE 79
[2020-04-08 08:19] LABS: ANION GAP 7 MMOL/L (8-16); CALCIUM 8.1 mg/dl (8.5-10); CHLORIDE 106 mmol/L (98-107); CO2 26 mmol/L (21-32); CREATININE 0.5 mg/dl (0.55-1.3); GLUCOSE,RANDOM 95 mg/dl (74-106); POTASSIUM 3.3 mmol/L (3.5-5.1); SODIUM 139 mmol/L (136-145)
[2020-04-08 08:28] LABS: HEMATOCRIT 29.3 % (32.4-45.2); MCH 31.4 pg (25.7-33.7); MCHC 34.2 g/dl (32.0-36.0); MEAN CELL VOLUME 91.7 fl (80-96); PLATELET COUNT 245 K/MM3 (134-434); RDW 13.4 % (11.6-15.6); WHITE BLOOD COUNT 9.3 K/mm3 (4.0-10.8)
[2020-04-08 08:30] LABS: BLOOD UREA NITROGEN < 5.7 mg/dl (7-18)
[2020-04-08] MEDS: FAMOTIDINE 20 MG/50 ML IVPB 20 MG/50 ML MG IVPB SCH (09:09)
[2020-04-08] MEDS: POTASSIUM CHLORIDE TABS 20 MEQ TABLET.ER (FP) PO SCH (09:09)
[2020-04-08 10:00] VITALS: BP 106/52; TEMP 99.5
--- NOTE | 2020-04-08 11:46 | PN ---
Progress Note (short form) - Note Progress Note: POD#3 Afebrile; VSS P-79 Pt doing very well Ambulating well On PO clear liquids- 3 oz PO TID H/H- stable P/E- Abd- All incisions well-healed WBC- 9.3 H/H- 10.0/ 29.3 (stable) K+- 3.3 (received 20 Meq KCL) P- D/C pt home All instructions quality assurance advisor regarding bathing, diet, etc F/U in 1 week
--- NOTE | 2020-04-08 12:24 | DS ---
DATE OF ADMISSION: 04/05/2020 DATE OF DISCHARGE: 04/08/2020 HISTORY OF PRESENT ILLNESS AND HOSPITAL COURSE: Patient is a 49-year-old woman with a history of morbid obesity for many years despite multiple attempts at dietary weight loss. She was admitted to [facility] on April 05, 2020, where a laparoscopic sleeve gastrectomy was performed. The details of the procedure are described in the operative note of that day. Postoperatively the patient was sent to recovery room where she was stabilized, transferred to the med/surg unit on a quality assurance monitor overnight. The patient remained stable overnight, heart rate mostly in the 8 . The following day the patient was sent for an upper GI Gastrografin swallow which showed no leakage and no signs of obstruction. She returned to her room, but that morning it was noted that her blood count had dropped from a preoperative level of 13.6 down to 10.5. A repeat in the afternoon was 10.0 hemoglobin and later in the evening at 11 o'clock her hemoglobin was down to 9.3. At this time the patient remained stable, but because of the continuing drop in hemoglobin the patient was transfused 1 unit of packed red blood cells on the lodge officer of April 07, 2020. The following morning at 7:30 a.m. the patient's blood count had come up to 10.1 and she remained stable throughout the rest of her hospitalization until on the morning of April 08, the day of discharge, her hemoglobin was 10.0. Hematocrit was 29.3, which is stable for the last 24 hours. Patient has stable vital signs. She is tolerating clear liquid 3 ounces 3 times a day without any difficulty and ambulating without any dizziness or any symptoms. Patient was given full instructions and the patient will be discharged home on the afternoon of April 08, 2020. MADYSON BREAUX M.D. [id number]
== END 2020-04-08 13:15 | disposition home or self-care (01) | DRG 621 ==
LOC: FM/S 04-05 08:56
PROVIDERS: ADMIT Surgery; ATTEND Surgery
PROC: 0BQT4ZZ Repair Diaphragm, Percutaneous Endoscopic Approach (ICD-10-PCS; 2020-04-05)
PROC: 0DB64Z3 Excision of Stomach, Percutaneous Endoscopic Approach, Vertical (ICD-10-PCS; principal; 2020-04-05 11:07)
PROC: 0FB24ZX Excision of Left Lobe Liver, Percutaneous Endoscopic Approach, Diagnostic (ICD-10-PCS; 2020-04-05 11:07)
DX: E66.01 Morbid (severe) obesity due to excess calories (principal); Z68.39 Body mass index [BMI] 39.0-39.9, adult; R16.0 Hepatomegaly, not elsewhere classified; G47.30 Sleep apnea, unspecified; R94.5 Abnormal results of liver function studies; K44.9 Diaphragmatic hernia without obstruction or gangrene; E03.9 Hypothyroidism, unspecified
CPT/HCPCS: 36415; 36430; 74240-TC-FY; 80048; 80053; 82550; 84484; 84703; 85027; 85610; 85730; 86850; 86900; 86901; 86922; 88305-TC; 93005; 93010; 93306-TC; 94760; P9058